=== PATIENT | female | born 1965 | race Caucasian/White ===

== ENCOUNTER 2017-01-18 07:12 | Day surgery (SDC) | payer OTHER ==
[2017-01-18] MEDS ORDERED: Lactated Ringer's 500 ML IV ONE (07:42)
[2017-01-18 07:48] VITALS: O2SAT 100
[2017-01-18] MEDS ORDERED: Propofol 10 mg/ml Inj (20 ML) ONE (08:04)
[2017-01-18 09:56] VITALS: BP 122/70; PULSE 55; RESP 12; TEMP 97.6
== END 2017-01-18 10:07 | disposition home or self-care (01) ==
LOC: H.ENDO 07:12
PROVIDERS: ATTEND Internal Medicine Gastroenterology
DX: K31.7 Polyp of stomach and duodenum (principal); I10 Essential (primary) hypertension